=== PATIENT | female | born 2000 | race Caucasian/White ===

== ENCOUNTER 2021-09-26 12:58 | Emergency (ER) | payer OTHER ==
[~2021-09-26] VITALS: Ht 172.7 cm; Wt 58.5 kg
[2021-09-26] MEDS ORDERED: VENTOLIN HFA18 GM INH (14:36)
[2021-09-26] MEDS ORDERED: AZITHROMYCIN250 MG PO (14:36)
[2021-09-26] MEDS ORDERED: PREDNISONE20 MG PO (14:36)
== END 2021-09-26 14:46 | disposition home or self-care (01) ==
LOC: FSED 14:31
DX: J06.9 Acute upper respiratory infection, unspecified (principal); Z88.0 Allergy status to penicillin; Z20.822 Contact with and (suspected) exposure to COVID-19
CPT/HCPCS: 99283; U0002